=== PATIENT | male | born 1950 ===

== ENCOUNTER 2017-03-05 09:45 | Outpatient (RCR) | payer OTHER | END 2017-03-07 | disposition home or self-care (01) | LOC: PTY 09:45 | DX: M67.911 Unspecified disorder of synovium and tendon, right shoulder (principal); S16.1XXD Strain of muscle, fascia and tendon at neck level, subsequent encounter; X58.XXXD Exposure to other specified factors, subsequent encounter | CPT/HCPCS: 97035; 97110; 97140; 97161; G0283 ==

== ENCOUNTER → 2017-04-07 | Outpatient (RCR) | payer OTHER | END | disposition home or self-care (01) | LOC: PTY 03-09 08:51 | DX: M67.911 Unspecified disorder of synovium and tendon, right shoulder (principal); S16.1XXD Strain of muscle, fascia and tendon at neck level, subsequent encounter | CPT/HCPCS: 97035; 97110; 97140; G0283 ==

== ENCOUNTER 2017-04-09 14:17 | Outpatient (RCR) | payer OTHER | END 2017-05-07 | disposition home or self-care (01) | LOC: PTY 14:17 | DX: M67.911 Unspecified disorder of synovium and tendon, right shoulder (principal); S16.1XXD Strain of muscle, fascia and tendon at neck level, subsequent encounter | CPT/HCPCS: 97035; 97140; G0283 ==